=== PATIENT | male | born 1965 | race Caucasian/White ===

== ENCOUNTER 2023-08-05 15:30 | Inpatient (IN) | payer BC ==
[2023-08-05] MEDS ORDERED: Sodium Chloride 0.9% 1,000 ML ONE (15:59)
[2023-08-05] MEDS ORDERED: Sodium Chloride 0.9% 1,000 ML IV ONE ×2 (16:00→16:01)
[2023-08-05] MEDS ORDERED: Sodium Chloride 0.9% 10 ML Syringe FLUSH PRN (16:01)
[2023-08-05] MEDS ORDERED: Acetaminophen 500 MG Tab PO ONE (16:03)
[2023-08-05 16:07] LABS: BASOPHILS ABSOLUTE AUTO 0.01 10^3/uL (0.00-0.10); BASOPHILS PERCENT AUTO 0.2 % (0.0-1.0); EOSINOPHILS ABSOLUTE AUTO 0.11 10^3/uL (0.10-0.30); HEMATOCRIT 46.8 % (40.0-52.0); HEMOGLOBIN 15.7 g/dL (13.0-17.0); IMMATURE GRAN ABSOLUTE AUTO 0.02 10^3/uL (0.00-0.50); IMMATURE GRAN PERCENT AUTO 0.4 % (0.0-5.0); LYMPHOCYTES ABSOLUTE AUTO 0.83 10^3/uL (1.00-4.00); LYMPHOCYTES PERCENT AUTO 14.8 % (20.0-40.0); MEAN CORPUSCULAR HEMOGLOBIN 29.2 pg (27.0-31.0); MEAN CORPUSCULAR HGB CONC 33.5 g/dL (32.0-36.0); MEAN CORPUSCULAR VOLUME 87.2 fL (82.0-92.0); MEAN PLATELET VOLUME 9.3 fL (7.4-10.4); MONOCYTES ABSOLUTE AUTO 0.12 10^3/uL (0.10-0.80); MONOCYTES PERCENT AUTO 2.1 % (2.0-8.0); NEUTROPHILS ABSOLUTE AUTO 4.52 10^3/uL (2.50-7.00); NEUTROPHILS PERCENT AUTO 80.5 % (50.0-70.0); PLATELET COUNT,PLT 189 10^3/uL (150-400); RED BLOOD CELL COUNT 5.37 10^6/uL (4.50-6.00); RED CELL DISTRIBUTION WIDTH 12.2 % (11.5-14.5); WHITE BLOOD CELL COUNT,WBC 5.61 10^3/uL (5.00-10.00)
[2023-08-05 16:44] LABS: INFLUENZA A NAA NEGATIVE (NEGATIVE); INFLUENZA B NAA NEGATIVE (NEGATIVE); RESPIRATORY SYNCYTIAL VIR NAA NEGATIVE (NEGATIVE)
[2023-08-05 16:45] LABS: CORONAVIRUS COVID-19 NAA NEGATIVE (NEGATIVE)
[2023-08-05 16:46] LABS: LACTIC ACID 1.4 mmol/L (0.4-2.0)
[2023-08-05 16:48] LABS: ALBUMIN 3.31 g/dL (3.40-5.00); ANION GAP 18.1 mmol/L (5-15); CALCIUM 7.4 mg/dL (8.7-10.3); CREATININE 0.95 mg/dL (0.51-1.17); EST CRCL DRUG DOSING (CG) 89.17 mL/min; POTASSIUM,K 3.1 mmol/L (3.5-5.1); PROTEIN TOTAL,TP 6.7 g/dL (6.4-8.2)
[2023-08-05 17:01] LABS: APPEARANCE,URINE CLEAR (CLEAR); BILIRUBIN,URINE SMALL (NEGATIVE); COLOR,URINE DARK YELLOW (YELLOW); GLUCOSE,URINE NEGATIVE (NEGATIVE); KETONES,URINE 15 mg/dL (NEGATIVE); LEUKOCYTE ESTERASE,URINE NEGATIVE (NEGATIVE); NITRITE,URINE NEGATIVE (NEGATIVE); OCCULT BLOOD,URINE NEGATIVE (NEGATIVE); PH,URINE 5.5 (5.0-9.0); PROTEIN,URINE 100 mg/dL (NEGATIVE); UROBILINOGEN,URINE 0.2 E.U./dL (0.2-1.0)
[2023-08-05 17:08] LABS: BACTERIA,URINE RARE /HPF (NONE TO FEW); EPITHELIAL CELLS,URINE RARE /LPF; HYALINE CASTS,URINE OCCASIONAL; MUCUS,URINE FEW /LPF (NEGATIVE); RBC,URINE 0-5 /HPF (0-5); WBC,URINE 0-5 /HPF (0-5)
[2023-08-05] MEDS ORDERED: Morphine 2 MG/ML SYRINGE IVPUSH PRN (17:53)
[2023-08-05] MEDS ORDERED: Promethazine 6.25 MG in Sodium Chloride 0.9% 50 ML IV PRN (17:53)
[2023-08-05] MEDS ORDERED: Ibuprofen 600 MG Tab PO PRN (17:53)
[2023-08-05] MEDS ORDERED: Acetaminophen 325 MG Tab PO PRN (17:53)
[2023-08-05] MEDS ORDERED: Ondansetron 4 MG/2 ML SDV IV PRN (17:53)
[2023-08-05] MEDS ORDERED: Atropine/Diphenoxylate 0.025-2.5 MG Tab PO ONE (18:05)
[2023-08-05] MEDS: Metoclopramide 10 MG/2 ML SDV IVPUSH SCH (18:41)
[2023-08-05] MEDS: Lactated Ringers 1,000 ML IV SCH (18:42)
[2023-08-05] MEDS: Pantoprazole 40 MG Vial IVPUSH SCH (18:42)
[2023-08-05 19:44] LABS: ANION GAP 17.4 mmol/L (5-15); CARBON DIOXIDE,CO2 19.5 mmol/L (21.0-32.0); CREATININE 0.96 mg/dL (0.51-1.17); EST CRCL DRUG DOSING (CG) 88.24 mL/min; MAGNESIUM 1.5 mg/dL (1.8-2.4); POTASSIUM,K 2.9 mmol/L (3.5-5.1)
[2023-08-05] MEDS ORDERED: Potassium Chloride 20 MEQ in Premix Bag 1 BAG IV ONE (20:09)
[2023-08-05] MEDS ORDERED: Magnesium Sulfate/Water 2 GM in Premix Bag 1 BAG IV ONE (20:15)
[2023-08-05] MEDS ORDERED: Potassium Chloride 20 MEQ in Premix Bag 2 BAG IV ONE (20:15)
[2023-08-05] MEDS ORDERED: Sodium Chloride 0.9% 50 ML IV SCH (21:00)
[2023-08-06] MEDS: Metoclopramide 10 MG/2 ML SDV IVPUSH SCH ×2 (00:29→06:10)
[2023-08-06] MEDS: Lactated Ringers 1,000 ML IV SCH (03:11)
[2023-08-06] MEDS: Pantoprazole 40 MG Vial IVPUSH SCH ×2 (06:10→17:38)
[2023-08-06 07:19] LABS: BASOPHILS ABSOLUTE AUTO 0.02 10^3/uL (0.00-0.10); BASOPHILS PERCENT AUTO 0.4 % (0.0-1.0); EOSINOPHILS ABSOLUTE AUTO 0.22 10^3/uL (0.10-0.30); EOSINOPHILS PERCENT AUTO 3.9 % (1.0-3.0); HEMATOCRIT 36.4 % (40.0-52.0); HEMOGLOBIN 12.3 g/dL (13.0-17.0); IMMATURE GRAN ABSOLUTE AUTO 0.01 10^3/uL (0.00-0.50); IMMATURE GRAN PERCENT AUTO 0.2 % (0.0-5.0); LYMPHOCYTES ABSOLUTE AUTO 0.69 10^3/uL (1.00-4.00); LYMPHOCYTES PERCENT AUTO 12.3 % (20.0-40.0); MEAN CORPUSCULAR HEMOGLOBIN 29.5 pg (27.0-31.0); MEAN CORPUSCULAR HGB CONC 33.8 g/dL (32.0-36.0); MEAN CORPUSCULAR VOLUME 87.3 fL (82.0-92.0); MEAN PLATELET VOLUME 9.3 fL (7.4-10.4); MONOCYTES ABSOLUTE AUTO 0.65 10^3/uL (0.10-0.80); MONOCYTES PERCENT AUTO 11.5 % (2.0-8.0); NEUTROPHILS ABSOLUTE AUTO 4.04 10^3/uL (2.50-7.00); NEUTROPHILS PERCENT AUTO 71.7 % (50.0-70.0); PLATELET COUNT,PLT 162 10^3/uL (150-400); RED BLOOD CELL COUNT 4.17 10^6/uL (4.50-6.00); RED CELL DISTRIBUTION WIDTH 12.7 % (11.5-14.5); WHITE BLOOD CELL COUNT,WBC 5.63 10^3/uL (5.00-10.00)
[2023-08-06 07:37] LABS: ANION GAP 16.4 mmol/L (5-15); C-REACTIVE PROTEIN 8.41 mg/dL (0.00-0.50); CALCIUM 7.4 mg/dL (8.7-10.3); CREATININE 0.91 mg/dL (0.51-1.17); EST CRCL DRUG DOSING (CG) 93.09 mL/min; MAGNESIUM 2.3 mg/dL (1.8-2.4); POTASSIUM,K 3.4 mmol/L (3.5-5.1)
[2023-08-06] MEDS ORDERED: Potassium Chloride 20 MEQ Tab.ER PO ONE (10:04)
[2023-08-06] MEDS: NS + KCl 20mEq/L 1,000 ML IV SCH (10:32)
[2023-08-06] MEDS ORDERED: Sodium Chloride 0.9% 1,000 ML IV ONE (21:19)
[2023-08-07] MEDS: NS + KCl 20mEq/L 1,000 ML IV SCH (00:18)
[2023-08-07] MEDS: Pantoprazole 40 MG Vial IVPUSH SCH (05:26)
[2023-08-07 08:27] LABS: ANION GAP 12.1 mmol/L (5-15); CALCIUM 7.9 mg/dL (8.7-10.3); CARBON DIOXIDE,CO2 26.9 mmol/L (21.0-32.0); CREATININE 0.88 mg/dL (0.51-1.17); EST CRCL DRUG DOSING (CG) 96.26 mL/min; MAGNESIUM 2.1 mg/dL (1.8-2.4)
== END 2023-08-07 10:46 | disposition home or self-care (01) | DRG 469 ==
LOC: KA.ED 15:30 → KA.MS 17:11 → UNDOADMIN 17:15 → KA.MS 17:15
PROVIDERS: ADMIT Physician Assistant Medical; ATTEND Family Medicine
DX: N17.9 Acute kidney failure, unspecified (principal); E86.0 Dehydration; E87.6 Hypokalemia; R19.7 Diarrhea, unspecified; K56.7 Ileus, unspecified; A08.4 Viral intestinal infection, unspecified; Z91.013 Allergy to seafood; Z79.899 Other long term (current) drug therapy
CPT/HCPCS: 0241U; 36415; 71045; 74021; 74176; 80048; 80053; 81001; 83605; 83690; 83735; 84484; 85025; 86140; 87040; 87045; 87046; 93010; 96360; 99284; 99285-25; A9270-GY; C9113; J2765; J3475; J3480; J3490; J7030; J7120; Q3014